=== PATIENT | female | born 2000 ===

== ENCOUNTER 2021-03-18 11:40 | Emergency (ER) | payer OTHER ==
[~2021-03-18] VITALS: Ht 167.6 cm; Wt 65.9 kg
[2021-03-18 13:24] VITALS: BP 118/64; PULSE 80; TEMP 98.1
== END 2021-03-18 13:39 | disposition home or self-care (01) ==
LOC: COL.ER 11:40
DX: G89.18 Other acute postprocedural pain (principal); Z90.89 Acquired absence of other organs